=== PATIENT | female | born 1985 | race Caucasian/White ===

== ENCOUNTER → 2019-10-22 | Outpatient (CLI) | payer BC, OTHER ==
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
== END | disposition home or self-care (01) ==
LOC: PMG 13:54
PROVIDERS: ATTEND Family Medicine
DX: M54.2 Cervicalgia (principal); R51 Headache; V89.2XXA Person injured in unspecified motor-vehicle accident, traffic, initial encounter
CPT/HCPCS: 70450; 72125

== ENCOUNTER → 2020-01-19 | Outpatient (CLI) | payer OTHER | END | disposition home or self-care (01) | LOC: LAB 11:44 | PROVIDERS: ATTEND Internal Medicine Cardiovascular Disease | DX: R50.9 Fever, unspecified (principal); Z20.828 Contact with and (suspected) exposure to other viral communicable diseases | CPT/HCPCS: 87635 ==

== ENCOUNTER → 2020-04-28 | Outpatient (CLI) | payer OTHER ==
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
== END | disposition home or self-care (01) ==
LOC: PMG 09:20
PROVIDERS: ATTEND Family Medicine
DX: M54.5 Low back pain (principal)
CPT/HCPCS: 72220

== ENCOUNTER → 2020-09-01 | Outpatient (CLI) | payer OTHER ==
[2020-09-01 09:35] LABS: BASO # 0.1 x10^3/uL (0.0-0.2); BASO % 1 % (0-3); EOS # 0.1 x10^3/uL (0.0-0.7); EOS % 1 % (0-3); HEMATOCRIT 40.5 % (36.0-47.0); HEMOGLOBIN 13.3 g/dL (12.0-15.5); LYMPH # 2.4 x10^3/uL (1.0-4.8); LYMPH % 21 % (24-48); MEAN CORPUSCULAR HEMOGLOBIN 29 pg (25-35); MEAN CORPUSCULAR HGB CONC 33 g/dL (31-37); MEAN CORPUSCULAR VOLUME 90 fL (79-100); MONO # 0.7 x10^3/uL (0.0-1.1); MONO % 6 % (0-9); NEUT # 8.2 x10^3uL (1.8-7.7); NEUT % 71 % (31-73); PLATELET COUNT 493 x10^3/uL (140-400); RED BLOOD COUNT 4.51 x10^6/uL (3.50-5.40); RED CELL DISTRIBUTION WIDTH 13.9 % (11.5-14.5); WHITE BLOOD COUNT 11.5 x10^3/uL (4.0-11.0)
[2020-09-01 10:34] LABS: C REACTIVE PROTEIN 16.2 mg/L (0-3.3); URIC ACID 4.6 mg/dL (2.6-6.0)
== END ==
LOC: LAB 08:18
PROVIDERS: ATTEND Physician Assistant Medical
DX: M25.471 Effusion, right ankle (principal)
CPT/HCPCS: 36415; 84550; 85025; 86140

== ENCOUNTER → 2020-10-21 | Outpatient (CLI) | payer OTHER ==
--- NOTE | 2020-10-21 09:31 | RAD ---
EXAM: CT Abdomen and Pelvis without IV contrast INDICATION: Reason: HEMATURIA, RENAL STONES / Spl. Instructions: / History: TECHNIQUE: Multi-detector row CT images were acquired from the lung bases through the abdomen and pel vis without the use of IV contrast. Sagittal and coronal images were acquired from the transaxial janna a. All CT scans performed at this facility utilize dose optimization techniques as appropriate to the exam, including the following: Automated exposure control and adjustment of the mA and/or KV accordi ng to patient size (this includes techniques or standardized protocols for targeted exams where dose is indication/reason for exam). ORAL CONTRAST: None COMPARISON: None FINDINGS: The absence of IV contrast limits evaluation of soft tissue pathology. LOWER CHEST: Unremarkable LIVER: Unremarkable BILIARY SYSTEM: Gallbladder surgically absent. Bile ducts are not dilated. PANCREAS: Unremarkable SPLEEN: Scattered splenic calcifications. ADRENALS: Unremarkable KIDNEYS & URETERS: Bilateral punctate nephrolithiasis is present, largest kidney stone measuring 5 m m at the inferior pole left kidney. No hydronephrosis, perirenal soft tissue stranding or hydroureter . No radiopaque stones in the ureters identified. BLADDER: Unremarkable REPRODUCTIVE ORGANS: Hysterectomy. No pelvic mass or fluid collection. Normal right ovary. Left ovar y not seen. GASTROINTESTINAL: The stomach, small bowel, and colon are unremarkable. The appendix is normal. MESENTERY/PERITONEUM/RETROPERITONEUM: Unremarkable VASCULAR: Unremarkable LYMPH NODES: No adenopathy OSSEOUS & SOFT TISSUES: Unremarkable IMPRESSION: 1. Bilateral punctate nephrolithiasis without evidence of urinary tract obstruction. 2. No specific findings to explain hematuria is identified on noncontrast CT of the abdomen and pelv is. 3. Status post cholecystectomy and hysterectomy. 4. 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 Correlate for any evidence of previous granu lomatous disease. Otherwise unremarkable noncontrast CT of the abdomen and pelvis with IV contrast. Electronically signed by: Lindsay Celeste MD (10/21/2020 9:28 AM) [id number]
== END ==
LOC: PMG 08:41
PROVIDERS: ATTEND Family Medicine
DX: N20.0 Calculus of kidney (principal); D73.89 Other diseases of spleen; R31.9 Hematuria, unspecified; Z90.49 Acquired absence of other specified parts of digestive tract
CPT/HCPCS: 74176